=== PATIENT | female | born 1965 | race Caucasian/White ===

== ENCOUNTER 2023-12-14 15:41 | Emergency (ER) | payer MEDICARE, MEDICAID ==
[~2023-12-14] VITALS: Ht 170.2 cm; Wt 125.5 kg
[~2023-12-14 15:41] MED LIST: LEVO75TA PO; METO-395 PO; OMEP10CA5 PO
[2023-12-14 16:49] LABS: BASOPHILS # (AUTO) 0.1 X10'3 (0-0.2); BASOPHILS % (AUTO) 1.2 % (0-1); EOSINOPHILS # (AUTO) 0.4 X10'3 (0-0.9); EOSINOPHILS % (AUTO) 3.6 % (0-6); HEMATOCRIT 41.5 % (35.0-45.0); HEMOGLOBIN 13.9 g/dl (12.0-16.0); LYMPHOCYTES # (AUTO) 3.1 X10'3 (1.1-4.8); LYMPHOCYTES % (AUTO) 29.3 % (21-51); MEAN CORPUSCULAR HEMOGLOBIN 30.3 PG (27.0-31.0); MEAN CORPUSCULAR HGB CONC 33.5 g/dL (33.0-36.5); MEAN CORPUSCULAR VOLUME 90.4 FL (78-98); MEAN PLATELET VOLUME 9.5 FL (7.4-10.4); MONOCYTES # (AUTO) 0.8 X10'3 (0-0.9); MONOCYTES % (AUTO) 7.3 % (2-12); NEUTROPHILS # (AUTO) 6.2 X10'3 (1.8-7.7); NEUTROPHILS % (AUTO) 58.6 % (42-75); PLATELET COUNT 236 X10'3 (140-440); RED BLOOD COUNT 4.58 X10'6 (4.20-5.60); RED CELL DISTRIBUTION WIDTH 13.3 % (11.5-14.5); WHITE BLOOD COUNT 10.6 X10'3 (4.5-11.0)
[2023-12-14 17:01] LABS: ALANINE AMINOTRANSFERASE 28 U/L (12-78); ALBUMIN 3.5 G/DL (3.4-5.0); ALBUMIN/GLOBULIN RATIO 0.8 (1.1-1.5); ALKALINE PHOSPHATASE 59 IU/L (46-116); ANION GAP 7 (8-16); ASPARTATE AMINO TRANSFERASE 25 U/L (10-37); BILIRUBIN,TOTAL 0.4 MG/DL (0.1-1.0); BLOOD UREA NITROGEN 21 MG/DL (7-18); BUN/CREATININE RATIO 23.1 (10.0-20.0); CALCIUM 9.1 MG/DL (8.5-10.1); CHLORIDE 106 MMOL/L (99-107); CREATININE 0.91 MG/DL (0.40-0.90); GLUCOSE 147 MG/DL (70-104); POTASSIUM 3.8 MMOL/L (3.5-5.1); SODIUM 140 MMOL/L (135-145); TOTAL CARBON DIOXIDE 26.7 MMOL/L (24-32); TOTAL PROTEIN 7.8 G/DL (6.4-8.2); eCRCL 65 ML/MIN; eGFR 63 ML/MIN
[2023-12-14 17:13] LABS: C-REACTIVE PROTEIN 1.19 MG/DL (0.0-0.5); THYROID STIMULATING HORMONE 1.62 ulU/ml (0.34-4.50)
[2023-12-14] MEDS ORDERED: CEPH-585 PO (17:32)
[2023-12-14 17:51] LABS: INR 0.9 INR; PROTHROMBIN TIME 9.8 SECONDS (9.0-12.0)
[2023-12-14 17:56] LABS: APTT 25 SECONDS (22-32)
== END 2023-12-14 17:53 | disposition home or self-care (01) ==
LOC: ER 15:42
DX: K03.89 Other specified diseases of hard tissues of teeth (principal); K02.9 Dental caries, unspecified; I10 Essential (primary) hypertension; R79.1 Abnormal coagulation profile; M54.2 Cervicalgia; Z88.6 Allergy status to analgesic agent; Z88.5 Allergy status to narcotic agent; Z79.2 Long term (current) use of antibiotics; Z79.899 Other long term (current) drug therapy; Z90.49 Acquired absence of other specified parts of digestive tract; Z90.710 Acquired absence of both cervix and uterus
CPT/HCPCS: 36415; 70490; 80053; 84439; 84443; 85025; 85610; 85651; 85730; 86140; 99284

== ENCOUNTER 2024-01-26 12:40 | Outpatient (CLI) | payer MEDICARE, MEDICAID ==
[~2024-01-26 12:40] MED LIST changes: +LEVO-65 PO
== END 2024-01-26 23:59 | disposition home or self-care (01) ==
LOC: CARD DIAG 12:40
PROVIDERS: ATTEND Student in an Organized Health Care Education/Training Program
DX: I08.8 Other rheumatic multiple valve diseases (principal); R01.1 Cardiac murmur, unspecified; R50.9 Fever, unspecified; K02.9 Dental caries, unspecified; M32.9 Systemic lupus erythematosus, unspecified
CPT/HCPCS: 93306

== ENCOUNTER → 2025-03-23 | Outpatient (CLI) | payer MEDICARE, MEDICAID ==
[~2025-03-23] MED LIST changes: -LEVO-65 PO
--- NOTE | 2025-03-23 14:10 | RADIOLOGY REPORT ---
ULTRASOUND SOFT TISSUE HEAD AND NECK CLINICAL INDICATION: NONTOXIC MULTINODULAR GOITER TECHNIQUE: Multiple real time sonographic images of the thyroid were obtained. FINDINGS: The right thyroid gland measures 4 cm. The left thyroid gland measures approximately 4 cm. The isthmus measures 0.4 cm. 5 mm TI-RADS 3 nodule right lower thyroid lobe. Follow-up in 1 year. IMPRESSION: 1. 5 mm TI-RADS 3 nodule right lower thyroid lobe. Follow-up in 1 year.
== END | disposition home or self-care (01) ==
LOC: RAD 08:48
PROVIDERS: ATTEND Physician Assistant
DX: E04.1 Nontoxic single thyroid nodule (principal)
CPT/HCPCS: 76536

== ENCOUNTER 2025-04-07 10:29 | Emergency (ER) | payer MEDICARE, MEDICAID ==
[~2025-04-07] VITALS: Ht 170.2 cm; Wt 125.0 kg
--- NOTE | 2025-04-07 11:08 | RADIOLOGY REPORT ---
AP portable chest CLINICAL INDICATION: green mucous FINDINGS: Heart size is normal. No infiltrates or effusions. No bony thoracic abnormalities. IMPRESSION: 1. No acute cardiopulmonary pathology
[2025-04-07 11:19] LABS: MEAN PLATELET VOLUME 9.0 FL (7.4-10.4); RED CELL DISTRIBUTION WIDTH 13.6 % (11.5-14.5)
[2025-04-07 11:37] LABS: CREATININE 0.81 MG/DL (0.40-0.90); PRO BRAIN NATRIURETIC PEPTIDE 105 PG/ML (0-125); TOTAL CARBON DIOXIDE 30.7 MMOL/L (24-32); eCRCL 72 ML/MIN; eGFR 72 ML/MIN
--- NOTE | 2025-04-07 11:58 | Physician Documentation ---
History of Present Illness ~ Chief Complaint: Cough Stated Complaint: COLD SYMPTOMS Time Seen by MD: 11:02 Primary Medical Doctor: Stephanie Graff [facility] Source: patient Mode of Arrival: POV Exam Limitations: no limitations HPI 59-year-old female with chief complaint cough and sinus congestion which started about two weeks ago but then got better and worsened about five days ago. She states that she has difficulty sleeping at night because of the amount of drainage that she has going down her throat into her chest. Her cough is productive coughing up thick green mucus. She denies any history of pneumonia, COPD, asthma, smoking history. No fever, chills, body aches. Medication Reconciliation Allergies: Coded Allergies: NSAIDS (Non-Steroidal Anti-Inflamma (Verified Allergy, Unknown, 04/07/25) codeine (Verified Allergy, Unknown, 04/07/25) morphine (Verified Allergy, Unknown, 04/07/25) Scheduled Levothyroxine Sodium* (Synthroid*), 0.75 TABLET PO DAILY, (Reported) Metoprolol Succinate (Metoprolol Succinate), 25 MG PO DAILY Omeprazole (Omeprazole), 1 CAP PO DAILY, (Reported) Past Medical History Past Medical History: No Pertinent History, Hypertension, Peptic Ulcer Disease, Thyroid (unspecified), Basal Cell Past Surgical History: cholecystectomy, hysterectomy Other Past Surgical History: Ear tubes as a kid Patient History: FH: breast cancer Alcohol Use: None Drug Use: none Lives with: Family Lives In: Home Occupation: employed Review of Systems All Other Systems at this time: Reviewed and Negative Physical Exam Vital Signs: Temperature: 97.4, Source: Temporal, Heart Rate: 94, Respiratory Rate: 15, BP: 154/88, Pulse Oximetry: 100, Weight: 125.000 Oxygen Flow Rate: 0 Physical Exam GENERAL: Alert, no acute distress. patient sounds very congested through her sinuses. HEENT: NCAT, EOMI, PERRL, normal oropharynx, moist oral mucosa. ttp over sinuse s. erythematous nasal mucosa. pharyngeal wall normal. NECK: Supple, trachea midline. No cervical LAD. CARDIAC: Regular rate and rhythm, no murmurs, rubs, or gallops. Equal distal pulses. No lower extremity edema, cap refill less than 2 seconds. RESPIRATORY: Equal breath sounds, clear to auscultation bilaterally, no respiratory distress. NEUROLOGICAL: Awake, alert, and oriented x 3. Normal gait. SKIN: Warm/dry, no pallor, no rash. PSYCH: Alert and appropriate. Affect congruent with mood. Speech is clear. Good eye contact. Progress Results/Orders Results/Orders Vital Signs 04/07/25 04/07/25 04/07/25 04/07/25 10:40 11:06 11:15 11:48 Temp 97.4 Pulse 107 101 94 Resp 24 20 15 B/P (MAP) 171/98 159/82 (107) 154/88 (110) Pulse Ox 99 100 100 O2 Flow Rate 0 0 0 04/07/25 04/07/25 12:07 12:16 Temp 97.4 Pulse 97 Resp 16 B/P (MAP) 146/89 (108) Pulse Ox 100 O2 Flow Rate 0 Laboratory Tests Test 04/07/25 11:05 White Blood Count 11.9 H Red Blood Count 4.62 Hemoglobin 14.0 Hematocrit 42.3 Mean Corpuscular Volume 91.5 Mean Corpuscular Hemoglobin 30.4 Mean Corpuscular Hemoglobin Concent 33.2 Red Cell Distribution Width 13.6 Platelet Count 255 Mean Platelet Volume 9.0 Neutrophils (%) (Auto) 66.9 Lymphocytes (%) (Auto) 22.7 Monocytes (%) (Auto) 7.7 Eosinophils (%) (Auto) 2.0 Basophils (%) (Auto) 0.7 Neutrophils # (Auto) 8.0 H Lymphocytes # (Auto) 2.7 Monocytes # (Auto) 0.9 Eosinophils # (Auto) 0.2 Basophils # (Auto) 0.1 CBC Comment Sodium Level 142 Potassium Level 3.8 Chloride Level 106 Carbon Dioxide Level 30.7 Anion Gap 5 L Blood Urea Nitrogen 18 Creatinine 0.81 Estimated GFR/1.73 m2 72 BUN/Creatinine Ratio 22.2 H Glucose Level 89 Lactic Acid Level 1.0 Calcium Level 9.2 Pro-B-Type Natriuretic Peptide 105 Albumin 3.6 Chemistry Comments Microbiology Date/Time Source Procedure Growth Status 04/07/25 11:11 Blood Arm Left Blood Culture - Preliminary NO GROWTH AFTER 1 DAY Resulted EKG/XRAY/CT/US/VASC/MRI Chest X-Ray : Interpreted By: radiologist Views: 1 VIEW Indication: cough Lungs: normal Mediastinum: normal Ribs/Bones: normal Abdomen: normal Impression: no acute disease Additional Comments AP portable chest CLINICAL INDICATION: green mucous FINDINGS: Heart size is normal. No infiltrates or effusions. No bony thoracic abnormalities. IMPRESSION: 1. No acute cardiopulmonary pathology Medical Decision Making Additional information obtaine: N/A Findings n/a Differential Dx:Considerations: Include: Allergic rhinitis, Influenza, Otitis media, Peritonsillar abscess, Pharyngitis-Diphtheria, Pharyngitis-Streptoccal, Pharyngitis-Viral, Pneumonia, Pnuemonitis, Sinusitis, URI, Other Departure Time of Disposition: 11:55 Disposition: 01 HOME / SELF CARE / HOMELESS Impression: Primary Impression: Acute sinus infection Qualified Codes: J01.90 - Acute sinusitis, unspecified Additional Impression: Cough Qualified Codes: R05.1 - Acute cough Condition: Stable Discharge Instructions: Upper Respiratory Infection, Adult Additional Instructions: AUGMENTIN RX SENT TO PHARMACY SINUS INFECTIONS ARE NOT RECOMMENDED TO TREAT WITH ANTIBIOTICS UNLESS PRESENT FOR LONGER THAN 10DAYS....SINCE YOU HAD SYMPTOMS PRIOR AND THEN GOT BETTER AND THEN SYMPTOMS RETURNED, IT IS REASONABLE TO CALL THIS BACTERIAL OVER VIRAL. F/U WITH PRIMARY CARE PROVIDER IF NOT IMPROVING Referrals: NO PRIMARY CARE PROVIDER (PCP) Prescriptions Amox Tr/Potassium Clavulanate (Augmentin 875-125 Tablet) 1 Each Tablet 1 TAB PO Q12H for 10 Days, #20 TAB Prov: IGNACIO MEMBRENO 04/08/25 Education Educated: Patient Educated regarding: diagnosis, treatment, need for follow up Signature Scribe Signature: X Attestation: IGNACIO HA Apr 07, 2025 11:58
[2025-04-07 12:07] VITALS: BP 146/89; PULSE 97; RESP 16; O2SAT 100
[2025-04-07 12:16] VITALS: TEMP 97.4
[2025-04-08] MEDS ORDERED: AMOX-117 PO (12:46)
== END 2025-04-07 12:16 | disposition home or self-care (01) ==
LOC: ER 10:30
DX: J01.90 Acute sinusitis, unspecified (principal); R05.9 Cough, unspecified; Z90.49 Acquired absence of other specified parts of digestive tract; Z90.710 Acquired absence of both cervix and uterus; Z88.6 Allergy status to analgesic agent; Z88.5 Allergy status to narcotic agent; Z79.899 Other long term (current) drug therapy
CPT/HCPCS: 36415; 71045; 80048; 83605; 83880; 85025; 87040; 99284